=== PATIENT | female | born 1955 | race African-American/Black ===

== ENCOUNTER → 2017-05-03 | Outpatient (CLI) | payer OTHER ==
[~2017-05-03] MED LIST: AMLO5 PO; CEPH-460 PO; CLON0.1T PO; HYDR25TA5 PO; IBUP-232 PO; LISI40TA PO; NORC5TAB PO; PRAV40TA2 PO; [UNRECOGNIZED DRUG - CODE]
[2017-05-03 13:37] LABS: BLOOD, URINE NEG (NEG); GLUCOSE,URINE NEG (NEG); HYALINE CAST, URINE 1 /lpf (RARE); KETONE, URINE NEG (NEG); NITRITE,URINE NEG (NEG); PH, URINE 5.5 (5.0-8.5); SQUAMOUS EPITHELIAL CELL URINE <1 /hpf (0-5); URINE COLOR LIGHT-YELLOW (YELLW/STRAW)
[2017-05-03 13:38] LABS: COMMENT (UR) CULT NOT INDICATED; CULTURE IF INDICATED CULT NOT INDICATED
== END ==
LOC: CLAB 13:11
PROVIDERS: ATTEND Family Medicine
DX: R30.0 Dysuria (principal)
CPT/HCPCS: 81001

== ENCOUNTER → 2017-07-26 | Outpatient (CLI) | payer OTHER ==
[~2017-07-26] MED LIST changes: -NORC5TAB PO; -[UNRECOGNIZED DRUG - CODE]
[2017-07-26 11:01] LABS: ALBUMIN 3.9 GM/DL (3.4-5.0); ALT (GPT) 25 U/L (10-53); AST (GOT) 15 U/L (15-37); BICARBONATE 30.1 MEQ/L (21.0-32.0); BLOOD UREA NITROGEN 15 MG/DL (7-18); CALCIUM 9.5 MG/DL (8.5-10.1); CHLORIDE 104 MEQ/L (98-107); CHOLESTEROL 202 MG/DL (120-200); CREATININE 0.83 MG/DL (0.50-1.00); GLOMERULAR FILTRATION RATE 84 ML/MIN (>89); GLUCOSE,FASTING 93 MG/DL (74-99); SODIUM (NA) 142 MEQ/L (136-145); TRIGLYCERIDES 68 MG/DL (42-150)
[2017-07-26 11:03] LABS: ALKALINE PHOSPHATASE 133 U/L (45-117); CHOLESTEROL/ HDL RATIO 2.66 RATIO; HDL CHOLESTEROL 75.8 MG/DL (40.0-60.0); LDL CHOLESTEROL 113 MG/DL (0-99); TOTAL BILIRUBIN ADULT 0.6 MG/DL (0.2-1.0); TOTAL PROTEIN 7.7 GM/DL (6.4-8.2)
== END ==
LOC: CLAB 09:54
PROVIDERS: ATTEND Family Medicine
DX: E78.00 Pure hypercholesterolemia, unspecified (principal); I10 Essential (primary) hypertension; Z11.59 Encounter for screening for other viral diseases; E55.9 Vitamin D deficiency, unspecified
CPT/HCPCS: 36415; 80053; 80061; 82306; 86803

== ENCOUNTER → 2018-01-16 | Outpatient (CLI) | payer OTHER ==
[~2018-01-16] VITALS: Ht 160 cm; Wt 82.3 kg
[~2018-01-16] MED LIST changes: -AMLO5 PO; -CEPH-460 PO; +CHLORHEXIDINE GLUCONATE 2 % 1 PACK (2 CLOTHS) TOPICAL PRN; -CLON0.1T PO; +DEXTROSE 5% IN WATE 1000ML INJ 1,000 ML IV SCH; +DO NOT ADM ANY ANTICOAGULANT DRUGS PRN; -IBUP-232 PO; +LACTATED RINGER'S 1000 ML INJ 1,000 ML IV ONE; +LACTATED RINGER'S 1000 ML IV PRN; +LIDOCAINE HCL 1% PF 5 ML SYRINGE OTHER ONE; +METOPROLOL TARTRATE 25 MG TAB PO PRN; +POVIDONE IODINE 5% (ANTISEPSIS KIT) 4 APPLICATIONS EACH NARE PRN; +PROPOFOL 200 MG/20 ML AMP IV ONE; +SODIUM CHLORID 0.9% 500 ML IV PRN
--- NOTE | 2018-01-16 08:18 | EKG ---
Date Performed: 01/16/2018 Time Performed: 06:58:03 PTAGE: 62 years EKG: Sinus rhythm WITH SINUS ARRHYTHMIA MODERATE VOLTAGE CRITERIA FOR LVH, CONSIDER NORMAL VARIANT NONSPECIFIC T-WAVE ABNORMALITY BORDERLINE ECG PREVIOUS TRACING : 07/18/2016 22.02 DOCTOR: Filippo Chilel Interpretating Date/Time 01/16/2018 08:16:49
--- NOTE | 2018-01-16 08:21 | GIPROC ---
[facility] [address] [facility]. [facility], [address] COLONOSCOPY PROCEDURE REPORT EXAM DATE: 01/16/2018 PATIENT NAME: Kassandra Martinez MR #: [id number] BIRTHDATE: 1955 ENDOSCOPIST: Lise Baker MD ORDER #: [id number] DISH WASHER: Sarah Grant and Allegra Stoner STATUS: outpatient INDICATIONS: The patient is a 62 yr old female here for a colonoscopy due to Screening, personal history of polyps. PROCEDURE PERFORMED: Total Colonoscopy with polypectomy with biopsy forceps, biopsy of TI, and fulguration of polyps. MEDICATIONS: See Anesthesia Record ESTIMATED BLOOD LOSS: None CONSENT: The patient understands the risks and benefits of the procedure and understands that these risks include, but are not limited to: sedation, allergic reaction, infection, perforation and/or bleeding. Alternative means of evaluation and treatment include, among others: physical exam, x-rays, and/or surgical intervention. The patient elects to proceed with this endoscopic procedure. DESCRIPTION OF PROCEDURE: checked for proper function. Hand hygiene and appropriate measures for infection prevention was taken. After the risks, benefits and alternatives of the procedure were thoroughly explained, Informed consent was verified, confirmed and timeout was successfully executed by the treatment team. A digital exam was performed. The endoscope was introduced through the anus and advanced to the ileocolic anastomosis. The prep quality was excellent. The instrument was then slowly withdrawn as the colon was fully examined. Multiple tiny polypoid areas consistent with hyperplasia were noted in the terminal ileum. Biopsies were obtained There were scattered 1-2 mm polyps noted within the transverse colon, descending colon, and sigmoid. Polypectomies were performed in the sigmoid. The remainder were fulgurated. There were no abnormalities in the rectum. The scope was then completely withdrawn from the patient and the procedure terminated. ADVERSE EVENTS: There were no complications. WITHDRAWL TIME: 10 minutes DEGREE OF DIFFICULTY: IMPRESSIONS: Normal Colon RECOMMENDATIONS: Await biopsies PATIENT CONDITION: Stable DISPOSITION: Home RECALL: If polyps adenomatous, repeat in 3 years; if hyperplastic, repeat in 5 years Lise Baker MD eSigned: Lise Baker MD 01/16/2018 8:21 AM cc: Dr. Edmonds PATIENT NAME: Kassandra Martinez MR#: [id number]
[2018-01-16 09:04] VITALS: BP 142/88; PULSE 80; RESP 18; TEMP 97.5; O2SAT 97
== END ==
LOC: HSDC 06:07
PROVIDERS: ATTEND Colon & Rectal Surgery
DX: Z12.11 Encounter for screening for malignant neoplasm of colon (principal); Z86.010 Personal history of colon polyps; K63.5 Polyp of colon; K50.00 Crohn's disease of small intestine without complications; R94.31 Abnormal electrocardiogram [ECG] [EKG]
CPT/HCPCS: 00812; 45380; 45388; 88305; 93005; J7120

== ENCOUNTER 2018-08-20 06:48 | Inpatient (IN) ==
[2018-08-20] MEDS ORDERED: Sodium Chlor 0.9% Inj 500 ML IV.CONT ONE (07:30)
[2018-08-20] MEDS ORDERED: Metoprolol Tartrate 25 MG Tablet PO ONE (07:30)
[2018-08-20] MEDS ORDERED: Chlorhexidine Gluconate 2% 1 Pack (2 Cloths) TOPICAL ONE (07:30)
[2018-08-20] MEDS ORDERED: HYDROmorphone PF Inj 2 MG/ML Vial ONE (09:27)
[2018-08-20] MEDS ORDERED: fentaNYL Citrate Inj 100 MCG/2 ML Ampul ONE ×2 (13:39)
[2018-08-20] MEDS ORDERED: *morphine SULFATE 4 MG/ML PERIprocedure ONLY ONE (14:08)
[2018-08-20] MEDS ORDERED: Ketorolac Inj 30 MG/ML (IVP) Vial ONE (15:17)
[2018-08-20] MEDS ORDERED: Ketorolac Inj 30 MG/ML (IVP) Vial IV.PUSH ONE (15:18)
[2018-08-20] MEDS ORDERED: Morphine Inj 4 MG/ML Vial IV.PUSH PRN ×4 (15:29→16:58)
--- NOTE | 2018-08-20 15:29 | MP ---
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 POSTOPERATIVE DIAGNOSIS: Carcinoma of the left lobe of the thyroid. PROCEDURE PERFORMED: Near total thyroidectomy. SURGEON: Chente Butler MD. PROCEDURE: Wilder DowTAYLOR. ANESTHESIA: General endotracheal. OPERATIVE FINDINGS: The patient was found to have a relatively large, dense tumor in the left lobe of the thyroid with a significant scirrhous reaction around it. It was densely adherent to the trachea as well as to the area within a millimeter of the recurrent nerve. The right lobe was grossly without tumor. No other abnormalities were noted. DESCRIPTION OF PROCEDURE: The patient was brought to the operating room. After satisfactory general endotracheal anesthesia was obtained, the neck was hyperextended, then prepped and draped in the usual sterile fashion. A standard collar incision was made, carried down sharply through the subcutaneous tissue with the cautery being used for hemostasis with hemostasis. The incision was deepened through the platysma with the cautery after which the superior and inferior flaps were developed subcutaneously using the cautery. The thyroid retractor was placed and opened, after which the midline of the neck was incised by using the cautery. The dissection was carried down to the thyroid, which was identified. The left lobe of the thyroid was approached first and it was from the strap muscles without problem. After placement of a green retractor, the left thyroid lobe was grasped with Allis clamps and rotated, first superiorly to identify and divide the inferior thyroid vessels and the other small vessels in the area using the Harmonic scalpel. Using the nerve probe, the recurrent nerve was identified in its course, after which it was dissected free and identified as well. The nerve was in very close proximity to the tumor as noted above and using very delicate dissection, the nerve was dissected free from the tumor without problem despite the tedious dissection. PROCEDURE: After freeing the area of the tumor from the recurrent nerve, the remainder of the thyroid gland on the left side was dissected free. It had been divided at its isthmus earlier using the Harmonic scalpel in order to facilitate the dissection in different directions. It was passed for permanent pathology and labeled left thyroid lobe. Attention was then turned to the right side, where upon the right lobe was dissected free from the surrounding tissue with minimal blunt dissection required. The gland was grasped and retracted superiorly to allow access to the inferior thyroid vessels, which were divided at the level of the gland with the Harmonic scalpel. The remainder of the thyroid lobe was dissected free with minimal difficulty and the recurrent nerve on the right side was again identified visually as well as with the nerve probe. The dissection was carried out superiorly and the portion of the superior lobe was left is intact as it was divided. The parathyroids were preserved as well as possible, although they were adherent to the capsule of the thyroid and dissected free. Hemostasis was checked for in both areas of dissection and found to be quite satisfactory. The right lobe of the thyroid and isthmus were sent labeled right lobe. A piece of Nu-Knit gauze was cut to appropriate size and a piece was placed on each side. Hemostasis was again checked for and found to be satisfactory. The midline of the neck was closed with a running 3-0 Vicryl suture. The platysmal layer was closed with interrupted 3-0 Vicryl suture and the skin closed with interrupted 4-0 PDS subcuticular stitch. Steri-Strips were applied. The patient was then awakened and taken from the operating room in satisfactory condition, having tolerated the procedure without problem. ESTIMATED BLOOD LOSS: Less than 30 mL COUNTS: The instrument, sponge, and needle counts were reported to be correct x2 at the end of procedure. It should be noted that the nerve probe was used to confirm the active presence of both recurrent nerves prior to closure. MD ZABRINA Scott/blayne , 02:54 PM , 03:02 PM
[2018-08-20] MEDS: Ketorolac Inj 30 MG/ML (IVP) Vial IV.PUSH SCH (21:07)
[2018-08-21] MEDS: Ketorolac Inj 30 MG/ML (IVP) Vial IV.PUSH SCH ×3 (03:35→16:15)
[2018-08-21 09:00] VITALS: PULSE 92; RESP 17
[2018-08-21] MEDS ORDERED: hydroCHLOROthiazide 25 MG Tablet PO SCH (09:00)
[2018-08-21] MEDS ORDERED: Lisinopril 20 MG Tablet PO SCH (09:00)
[2018-08-21 12:39] VITALS: BP 121/66; TEMP 97.9; O2SAT 95
--- NOTE | 2018-08-21 15:20 | P.PNGS ---
Subjective Patient reports: no new complaints, feels better, pain is less, tolerating a regular diet (Has no significant incisional pain; voice is normal) Physical Exam Vital signs: Vital Signs 08/20/18 15:30 08/20/18 16:30 08/20/18 17:38 Temperature 97.6 F Pulse Rate 82 77 88 Respiratory Rate 12 12 18 Blood Pressure 156/92 H 144/86 H 149/77 H Pulse Oximetry 99 99 97 08/20/18 20:00 08/21/18 00:00 08/21/18 04:00 Temperature 97.3 F L 97.6 F 97.9 F Pulse Rate 94 H 104 H 95 H Respiratory Rate 16 14 14 Blood Pressure 147/57 H 141/78 H 132/76 Pulse Oximetry 97 96 97 08/21/18 08:00 08/21/18 12:00 Temperature 97.5 F L 97.9 F Pulse Rate 92 H 92 H Respiratory Rate 17 17 Blood Pressure 135/74 121/66 Pulse Oximetry 93 L 95 Intake & Output 08/20/18 08/21/18 08/21/18 18:59 06:59 18:59 Intake Total 400 / 400 960 / 960 Output Total 50 / 50 Balance 350 / 350 960 / 960 Weight 81.2 kg Intake: IV 960 / 960 LR 1000 mL Inj 1,000 ML @ 75 960 / 960 mls/hr IV.SIG .[id number] [facility] Rx#: [id number] Anesthesia Amount 400 / 400 Output: Estimated Blood Loss 50 / 50 Other: Date of Last Bowel Movement 08/20/18 Weight On Admission 81.2 kg - Routine Neck Exam Comments: The neck incision is dry; there is minimal swelling. Results - Labs Laboratory Results - last 24 hr 08/20/18 08/21/18 21:41 05:03 Calcium 8.8 8.6 Assessment and Plan - Assessment (1) Thyroid cancer Code(s): C73 - Malignant neoplasm of thyroid gland Status: Acute Plan: She is doing well; her Ca++ is 8.6. She will be discharged to home and I'll see her back in the office in 10-14 days.
== END 2018-08-21 16:20 | disposition home or self-care (01) | DRG 627 ==
LOC: HSDI 06:48 → N07 17:25
PROVIDERS: ADMIT Surgery; ATTEND Surgery
PROC: THYROID (2018-08-20 10:21)
CPT/HCPCS: 82310; 88307; 94150; J1170; J1885; J2250; J2270; J3010; J7120